=== PATIENT | male | born 1980 | race Caucasian/White ===

== ENCOUNTER 2019-11-20 02:30 | Emergency (ER) | payer MEDICAID ==
[~2019-11-20] VITALS: Ht 177.8 cm; Wt 81.6 kg
[2019-11-20 02:35] VITALS: BP 127/88
--- NOTE | 2019-11-20 02:39 | NUR ---
ERMD AT BEDSIDE EVALUATING PT.
--- NOTE | 2019-11-20 02:58 | NUR ---
patient discharged back to [facility] [id number]. vss. teaching given. opportunity to ask questions given.
--- NOTE | 2019-11-20 02:58 | NUR ---
no nursing intervention ordered by SHAN Choi.
== END 2019-11-20 02:58 ==
LOC: MED 02:30
DX: R00.0 Tachycardia, unspecified (principal); Z02.89 Encounter for other administrative examinations
CPT/HCPCS: 99283